=== PATIENT | female | born 1990 | race African-American/Black ===

== ENCOUNTER 2021-06-10 07:28 | Emergency (ER) | payer OTHER ==
[~2021-06-10] VITALS: Ht 160 cm; Wt 55.5 kg
[2021-06-10] MEDS ORDERED: LISINOPRIL5 MG PO (08:08)
[2021-06-10] MEDS ORDERED: PREDNISONE 20 MG TAB ONE (08:13)
[2021-06-10] MEDS ORDERED: PREDNISONE 20 MG TAB PO ONE (08:15)
[2021-06-10] MEDS ORDERED: PREDNISONE20 MG PO (08:29)
[2021-06-10] MEDS ORDERED: HYDROXYZINE HCL25 MG PO (08:29)
[2021-06-10] MEDS ORDERED: AMLODIPINE BESY10 MG PO (08:29)
== END 2021-06-10 08:40 | disposition home or self-care (01) ==
LOC: FSED 08:27
DX: L50.9 Urticaria, unspecified (principal); I10 Essential (primary) hypertension; Z88.0 Allergy status to penicillin; Z91.14 Patient's other noncompliance with medication regimen
CPT/HCPCS: 99283; J7512

== ENCOUNTER 2021-08-19 16:51 | Emergency (ER) | payer OTHER ==
[~2021-08-19] VITALS: Ht 160 cm; Wt 55.3 kg
[~2021-08-19 16:51] MED LIST: AMLODIPINE BESY10 MG PO; HYDROXYZINE HCL25 MG PO; LISINOPRIL5 MG PO; PREDNISONE20 MG PO
[2021-08-19] MEDS ORDERED: FLUOCINONIDE1 GM TOP (18:10)
[2021-08-19] MEDS ORDERED: CIPRO500 MG PO (18:10)
== END 2021-08-19 18:18 | disposition home or self-care (01) ==
LOC: FSED 17:18
DX: R30.0 Dysuria (principal); N30.00 Acute cystitis without hematuria; R21 Rash and other nonspecific skin eruption; I10 Essential (primary) hypertension
CPT/HCPCS: 81003; 81025; 99283